=== PATIENT | female | born 1970 | race Caucasian/White ===

== ENCOUNTER 2022-01-25 11:05 | Day surgery (SDC) | payer OTHER ==
[2022-01-23 16:13] VITALS: BMI 47.5
[~2022-01-25 11:05] MED LIST: Bupivacaine PF 0.5% 30 ML VIAL ONE
[2022-01-25] MEDS ORDERED: Lidocaine 1% MPF 2 ML VIAL ONE (12:15)
[2022-01-25] MEDS ORDERED: Midazolam HCl 2 mg/2 ml Vial ONE (12:53)
[2022-01-25] MEDS ORDERED: Fentanyl 100 MCG/2 ML VIAL ONE ×2 (13:04→15:28)
[2022-01-25] MEDS ORDERED: PROPOFOL 20 ML ONE (13:04)
[2022-01-25] MEDS ORDERED: Rocuronium Bromide 10 MG/ML (10ML VIAL) ONE (13:04)
[2022-01-25] MEDS ORDERED: Neomycin-Polymyxin 1 ML AMP ONE (13:05)
[2022-01-25] MEDS ORDERED: Ondansetron PF 4 MG/2 ML Vial ONE (13:05)
[2022-01-25] MEDS ORDERED: Dexamethasone 4 mg/ml Vial ONE (13:05)
[2022-01-25] MEDS ORDERED: Lidocaine 2% PF 5 ML VIAL ONE (13:06)
[2022-01-25] MEDS ORDERED: Glycopyrrolate 0.2 MG/ML 5 ML SYRINGE ONE (13:06)
[2022-01-25] MEDS ORDERED: CEFAZOLIN 2 GM VIAL ONE (13:15)
[2022-01-25] MEDS ORDERED: HYDROmorphone 0.5 MG/0.5 ML SYRINGE ONE (13:18)
[2022-01-25] MEDS ORDERED: Ketorolac Tromethamine 30 MG/ML VIAL ONE ×2 (14:35→15:00)
== END 2022-01-25 16:39 | disposition home or self-care (01) ==
LOC: CSHSDC 11:05
PROVIDERS: ATTEND Podiatrist Foot & Ankle Surgery
PROC: 0QBL0ZZ Excision of Right Tarsal, Open Approach (ICD-10-PCS; principal; 2022-01-25)
DX: M77.8 Other enthesopathies, not elsewhere classified (principal); I11.9 Hypertensive heart disease without heart failure; E78.2 Mixed hyperlipidemia; K21.9 Gastro-esophageal reflux disease without esophagitis; M19.90 Unspecified osteoarthritis, unspecified site; G89.4 Chronic pain syndrome; E66.01 Morbid (severe) obesity due to excess calories; Z68.42 Body mass index [BMI] 45.0-49.9, adult; Z79.82 Long term (current) use of aspirin; Z79.899 Other long term (current) drug therapy
CPT/HCPCS: C1713; J0690; J1100; J1170; J1885; J2001; J2250; J2405; J2704; J3010; S0020